=== PATIENT | female | born 1950 | race Caucasian/White ===

== ENCOUNTER → 2024-03-27 10:39 | Outpatient (REF) | payer MEDICARE, OTHER, SELFPAY ==
[2024-03-27 11:42] LABS: % Basophils 0.4 % (0-2); % Eosinophils 1.9 % (0-6); % Immature Granulocytes 0.3 % (0-0.5); % Lymphocytes 16.3 % (20.5-51.1); % Monocytes 6.8 % (1.7-9.3); % Neutrophils 74.3 % (42.2-75.2); Absolute Eosinophils 0.1 10^3/uL (0-0.7); Absolute Lymphocytes 1.1 10^3/uL (1.2-3.4); Absolute Monocytes 0.5 10^3/uL (0.1-0.6); Hematocrit 44.8 % (37.0-47.0); Hemoglobin 15.5 g/dL (12.0-16.0); Mean Corp Hgb Conc. 34.6 g/dL (33.0-37.0); Mean Corpuscular Hgb 32.8 pg (27.0-31.0); Mean Corpuscular Volume 94.7 fL (81.0-99.0); Nucleated Red Blood Cells % 0 %; Platelet Count 234 10^3/uL (130-400); Red Blood Cell Count 4.73 10^6/uL (4.20-5.40); Red Cell Dist. Width 12.9 % (11.5-14.5); White Blood Cell Count 6.7 10^3/uL (4.8-10.8)
[2024-03-27 14:00] LABS: Blood Urea Nitrogen 22 mg/dl (7-17); Calcium 10.2 mg/dl (8.4-10.2); Carbon Dioxide 30 mmol/L (22-30); Chloride 101 mmol/L (98-107); Glucose 103 mg/dl (70-99); Potassium 4.1 mmol/L (3.5-5.1); Sodium 142 mmol/L (135-145); eGFR > 60.00
== END ==
LOC: REG 10:39
PROVIDERS: ATTENDING PHYSICIAN Orthopaedic Surgery; FAMILY PHYSICIAN Family Medicine
DX: Z01.818 Encounter for other preprocedural examination (principal)
CPT/HCPCS: 36415; 80048; 85025

== ENCOUNTER 2024-04-24 19:13 | Observation (INO) | payer MEDICARE, OTHER, SELFPAY ==
[2024-04-24 15:26] VITALS: BP 94/67
[2024-04-24 17:18] LABS: % Basophils 0.2 % (0-2); % Immature Granulocytes 0.3 % (0-0.5); % Lymphocytes 2.6 % (20.5-51.1); % Monocytes 2.9 % (1.7-9.3); Absolute Lymphocytes 0.3 10^3/uL (1.2-3.4); Absolute Monocytes 0.4 10^3/uL (0.1-0.6); Absolute Neutrophils 11.8 10^3/uL (1.4-6.5); Hematocrit 33.2 % (37.0-47.0); Hemoglobin 11.6 g/dL (12.0-16.0); Mean Corp Hgb Conc. 34.9 g/dL (33.0-37.0); Mean Corpuscular Hgb 33.3 pg (27.0-31.0); Mean Corpuscular Volume 95.4 fL (81.0-99.0); Mean Platelet Volume 10.4 fL (7.4-10.4); Nucleated Red Blood Cells % 0 %; Platelet Count 180 10^3/uL (130-400); Red Blood Cell Count 3.48 10^6/uL (4.20-5.40); Red Cell Dist. Width 12.7 % (11.5-14.5); White Blood Cell Count 12.6 10^3/uL (4.8-10.8)
--- NOTE | 2024-04-24 17:21 | ED.GENMED ---
History of Present Illness
General
Chief Complaint: Fainting/Passed Out
Source: patient
Exam Limitations: none
Time Seen by Provider: 04/24/24 16:36
Nursing documentation reviewed up to this point in time: agreed with
History of Present Illness
History of Present Illness:
Patient to ED after syncopal event. SHe had RTHR this AM by Dr. Johnson. SHe was discharged home to [facility]. PT came to house to evaluate. SHe states she suddenly felt weak, flush. PT sat her in chair and she passed out. EMS called by PT
and she was sent to ED. She reports that she is feeling better however BP remains low.
Past History
Past History
ED Past Medical History: HTN, Hypercholesterolemia and Hypothyroidism
ED Past Surgical History: Orthopedic (RTHR)
Review of Systems
Review of Systems
Allergies reviewed?: Yes
All Other Systems: ROS reviewed and negative except as documented in HPI and ROS
Constitutional: Reports no symptoms
EENT: Reports no symptoms
Respiratory: Reports no symptoms
Cardiac: Reports syncope
ABD/GI: Reports no symptoms
Musculoskeletal: Reports other (RTHR, dressing dry and intat.)
Skin: Reports no symptoms
Neurological: Reports weakness
Psychiatric: Reports no symptoms
Phy Exam
General Physical Exam
General Presentation: mild distress
General age: appears stated age
General Skin: warm and dry
General Habitus: normal
Cardiovascular Exam
Cardiovascular Exam: regular rate/rhythm and no edema
Pulmonary Exam
Pulmonary Exam: lungs clear, no respiratory distress and chest non tender
Neurological Exam
Neurological Exam: alert, oriented x3, CN II-XII intact, no sensory deficits and speech normal
Musculoskeletal Exam
Musculoskeletal Exam: neuro vasc intact and other (RTHR today, dressing dry and intact.)
Skin Exam
Skin Exam: normal color, warm/dry and no rash
Psychiatric Exam
Psychiatric Exam: normal mood/affect
Course
Orders/Labs/Results
Orders:
Orders
04/24/24 Breakfast
Regular
At Your Request: Full Participation
Does patient need a safe tray?: No
04/24/24 15:25
ECG [Electrocardiogram (*1)] Urgent
Reason for Study: Syncope
EKG- Treatment ONCE
04/24/24 16:59
Complete Blood Count/With Diff Urgent
Comprehensive Metabolic Panel Urgent
NT-proBNP Urgent
Troponin I Urgent
04/24/24 18:55
Admit/Transfer Patient As Directed
Co-Sign Provider:
Level of Care: Observation services
Assign to:: Telemetry
Physician / Group: Savannah
Diagnosis: Syncope
Reason for Telemetry: Syncope
Date to Stop Telemetry: 04/26/24
Time to Stop Telemetry: 11:00
04/24/24 18:57
PRN Pain Medication Management As Directed
May give lesser potent ordered pain med per pt: Yes
preference::
Protocol:: Medication orders for pain may be administered in a
manner that supports deferring to patient preference
when the pt is:
- Requesting an ordered lesser potent pain medication.
Least to most potent pain medications are defined
as: acetaminophen < NSAID < tramadol < opioids
(morphine, oxycodone, hydromorphone).
- Requesting a lesser dose of the same medication IF
ORDERED.
- Requesting a less intrusive route of administration
if both routes are prescribed by the provider (PO <
IV).
04/24/24 18:58
Code Status As Directed
Resuscitation Status: Full Code
04/24/24 21:19
Acetaminophen [Tylenol] 1,000 mg PO Q6HPRN PRN
Celecoxib [Celebrex] 100 mg PO BID
Dexamethasone [Decadron] 4 mg PO BID
Gabapentin [Neurontin] 100 mg PO BID
Oxycodone [Roxicodone] 5 mg PO Q6HPRN PRN
Rosuvastatin Calcium [Crestor] 20 mg PO MoWeFr@0800
04/24/24 21:19
Activity As Directed
Activity Level: Out of Bed- Chair
Orthostatic Vital Signs As Directed
Orthostatic VS Frequency: BID
Pneumatic Compression Sleeves As Directed
Type: Knee high
Vital Signs As Directed
Frequency: Per unit guidelines
DX Deep Vein Thrombosis Video Routine
04/24/24 22:00
Ezetimibe [Zetia] 10 mg PO HS
04/25/24 06:00
Levothyroxine [Synthroid] 100 mcg PO DAILY @ 0600
04/25/24 07:30
Basic Metabolic Panel IN AM
Complete Blood Count/No Diff IN AM
04/25/24 08:00
Aspirin 325 mg PO DAILY
04/26/24 11:00
DC Protocol for Telemetry ONCE
Abnormal Lab Results
04/24/24
16:59
WBC 12.6 H 10^3/uL
(4.8-10.8)
RBC 3.48 L 10^6/uL
(4.20-5.40)
Hgb 11.6 L g/dL
(12.0-16.0)
Hct 33.2 L %
(37.0-47.0)
MCH 33.3 H pg
(27.0-31.0)
Absolute Neuts (auto) 11.8 H 10^3/uL
(1.4-6.5)
Absolute Lymphs (auto) 0.3 L 10^3/uL
(1.2-3.4)
Neutrophils % 94.0 H %
(42.2-75.2)
Lymphocytes % 2.6 L %
(20.5-51.1)
Glucose 151 H mg/dl
(70-99)
AST 38 H U/L
(14-36)
Total Protein 5.8 L g/dl
(6.3-8.2)
04/24/24 16:59
04/24/24 16:59
Vital Signs
Initial and Last Documented VS:
Initial Vital Signs
Temp Pulse Resp BP Pulse Ox
98.1 F 69 18 94/67 99
04/24/24 15:26 04/24/24 15:26 04/24/24 15:26 04/24/24 15:26 04/24/24 15:26
Last Documented Vital Signs
Temp Pulse Resp BP Pulse Ox
98.0 F 86 18 111/71 96
04/25/24 11:21 04/25/24 11:21 04/25/24 11:21 04/25/24 11:21 04/25/24 11:21
*Critical Care Note
Total Time (30-74mins, 75-104mins- exclusive of procedures): Not Applicable
Update Note
Update Note:
S/p RTHR this AM. Discharged to friends house. Syncopal event this afternoon, witnessed by PT. She reports feeling improved however BP remains low. IVF infusing. Friend is uncomfortable caring for her and she is uncomfortable/feels unsafe with
discharge at this point. Hx HTN, did not take her medications today. Will admit to hospitialist.
ED Attending Note
-
Portions of this chart may have been created with voice recognition software.� Occasional wrong word or��sound alike� substitutions may have occurred due to the inherent limitations of voice recognition software.
Discharge Plan
Departure
Patient Disposition: Admit
Date of Disposition: 04/24/24
Time of Disposition: 17:28
Presentation/result/management discussed w/ accepting MD/DO: Hospitalist
Condition: Fair
Covid-19: Not Applicable
Discharge Problem:
Hypotension, Syncope
Interventions
Interventions:
*General Assessment Last Done: 04/24/24 15:26
ED- Fall Risk Assessment Last Done: 04/24/24 17:56
*Nursing Disposition Last Done: 04/24/24 21:27
ED- Cardiac Assessment Last Done: 04/24/24 17:56
ED- Neurological Assessment Last Done: 04/24/24 17:56
Discharge Date and Time
Discharge Date/Time: 04/24/24 21:30
[2024-04-24 17:26] LABS: ALT (SGPT) 28 U/L (0-35); AST (SGOT) 38 U/L (14-36); Albumin 3.6 g/dl (3.5-5.0); Alkaline Phosphatase 45 U/L (38-126); Blood Urea Nitrogen 14 mg/dl (7-17); Calcium 8.6 mg/dl (8.4-10.2); Carbon Dioxide 22 mmol/L (22-30); Chloride 103 mmol/L (98-107); Glucose 151 mg/dl (70-99); Sodium 138 mmol/L (135-145); Total Bilirubin 0.5 mg/dl (0.2-1.3); Total Protein 5.8 g/dl (6.3-8.2); eGFR > 60.00
[2024-04-24 17:37] LABS: NT-proBNP 302 pg/ml; Troponin I < 0.012 ng/ml
[2024-04-24 17:55] VITALS: BP 99/47
--- NOTE | 2024-04-24 19:02 | HPS.HSE ---
Family Physician
-
Family Physician: NOT KNOW UNKNOWN - PT DOES
Chief Complaint
-
Syncope
History of Present Illness
Patient is a 73 y/o female past medical history of hypertension, hyperlipidemia and hypothyroidism who presents following a syncopal episode. Patient had a right hip replacement at the outpatient surgery center earlier today. She states she was
doing quite well and quickly got discharged from the recovery area. This afternoon she was walking in her friend's home where she is staying when she developed dizziness, developed a cold sweat and felt like she was going to pass out. PT was there
and sat in her a chair and then lowered her to the ground. Patient denies any chest pains, or palpitations associated with event. She did take her blood pressure medications prior to the surgery. She reports similar episode after her left total hip
replacement a few years ago.
Medical History
Past Medical History
Past Medical History: Reports None and Other
Additional Past Medical History:
Essential Hypertension
Hyperlipidemia
Hypothyroidism
Past Surgical History: Reports Other
Additional Past Surgical History:
Bilateral Total Hip Replacements
Colostomy with Reversal
Social History
Tobacco: Non-smoker
Alcohol: Occasional
Family History
Family History: Not pertinent
Allergies / Home Medications
Allergies reflects when Allergies were last updated in [facility].
Home Medications with original date entered in [facility]
Allergy/Medication List:
Allergies
Allergy/AdvReac Type Severity Reaction Status Date / Time
No Known Allergies Allergy Unverified 04/24/24 15:25
Home Medications
acetaminophen 500 mg tablet (Tylenol Extra Strength) 1,000 mg PO Q6HPRN PRN severe pain 04/24/24
aspirin 325 mg tablet 325 mg PO DAILY 04/24/24
celecoxib 100 mg capsule 100 mg PO BID 04/24/24
dexamethasone 4 mg tablet 4 mg PO BID 04/24/24
ezetimibe 10 mg tablet 10 mg PO HS 04/24/24
gabapentin 100 mg capsule 100 mg PO BID 04/24/24
hydrochlorothiazide 25 mg tablet 25 mg PO DAILY 04/24/24
levothyroxine 100 mcg tablet 100 mcg PO DAILY 04/24/24
losartan 50 mg tablet 50 mg PO DAILY 04/24/24
mupirocin 2 % topical ointment 1 applic topical BID 04/24/24
ondansetron HCl 4 mg tablet 4 mg PO Q6HPRN PRN nausea 04/24/24
oxycodone 5 mg tablet 5 mg PO Q6HPRN PRN severe pain 04/24/24
rosuvastatin 20 mg tablet 20 mg PO MOWEFR 04/24/24
Review of Systems
-
A 12 point ROS was completed and negative except as noted: Yes
Constitutional: Denies Fever or Chills
Respiratory: Denies Cough or Trouble Breathing
Cardiac: Reports Syncope; Denies Chest Pain or Palpitations
Physical Exam
Vital Signs
Vital Signs
Temp Pulse Resp BP Pulse Ox
98.1 F 84 18 99/47 99
04/24/24 15:26 04/24/24 17:55 04/24/24 17:55 04/24/24 17:55 04/24/24 17:55
Physical Exam
General: Comfortable and Conversant
HEENT: Anicteric and Moist mucous membranes
Respiratory: Clear and Non Labored Respirations
Cardiac: S1/S2 and Regular Rhythm
GI: Soft and Non Tender
Rectal: Deferred by Provider
Musculoskeletal: No Clubbing and No Cyanosis
Skin: Warm and Dry
Neuro: Awake, Alert, Oriented and Nonfocal/grossly intact
Psych: Calm
Laboratory Results
-
04/24/24 16:59
04/24/24 16:59
Laboratory Results
Total Bilirubin 0.5 mg/dl (0.2-1.3) 04/24/24 16:59
AST 38 U/L (14-36) H 04/24/24 16:59
ALT 28 U/L (0-35) 04/24/24 16:59
Alkaline Phosphatase 45 U/L (38-126) 04/24/24 16:59
Troponin I < 0.012 ng/ml 04/24/24 16:59
Data Reviewed
-
Lab Data: Labs Reviewed by me
Impression/Plan
-
Syncope secondary to Hypotension/Orthostasis following Anesthesia
-Continue IVFs
-Hold blood pressure meds
-Check orthostatic VS
-Monitor on Telemetry
Right Total Hip Replacement
-Continue aspirin for DVT proph
-Continue Tylenol, Celebrex and Gabapentin for pain
-Continue Oxycodone prn severe pain - Reviewed with patient to limit this medication as it can cause hypotension
Essential Hypertension
-Hold oral meds until BP improves
Hyperlipidemia
-Continue Crestor
Hypothyroidism
-Continue levothyroxine
DVT proph: SCDs
Code Status: Full Code
[2024-04-24 19:27] VITALS: BP 99/66
--- NOTE | 2024-04-24 19:32 | W.PN.UPDATE ---
Update Note
Progress Note Update
This is an addendum to the H&P written by Mignon Moon on 04/24/2024. Patient seen and examined independently with PA.
73-year-old female past medical history of hypertension, hypothyroidism, cervical disc disease, chronic pain, hyperlipidemia, presenting with syncopal episode after having right hip surgery today. Blood pressure in the 90s. Patient likely
hypotensive secondary to anesthesia and multiple hypertensive medications which she took today. Hold hypertensive medications. IV fluids.
Examination of the hip without amount of swelling expected after hip surgery.
[2024-04-24] MEDS: NSS 1000 IV (21:46)
[2024-04-24] MEDS: ZETIA 10 MG PO (21:47)
[2024-04-24] MEDS: CELEBREX 100 MG PO (21:47)
[2024-04-24] MEDS: NEURONTIN 100 MG PO (21:47)
[2024-04-24] MEDS: DECADRON 4 MG PO (21:49)
[2024-04-24 21:58] VITALS: BP 109/85; BP 132/78; BP 96/76; PULSE 107; PULSE 90; PULSE 98
[2024-04-24 22:50] VITALS: BP 132/78
[2024-04-25 03:40] VITALS: BP 106/69
[2024-04-25 03:48] VITALS: BMI 27.2
[2024-04-25] MEDS: SYNTHROID 100 MCG PO (05:05)
--- NOTE | 2024-04-25 07:16 | W.PN.UPDATE ---
Update Note
Progress Note Update
Patient seen and evaluated by orthopedic surgery this morning. Right total hip replacement yesterday, 04/24/[address]. Admitted to medical team due to syncopal event yesterday afternoon. Patient reports that she is feeling much better
this morning. Aquacel dressing clean, dry, and intact. She denies any lightheadedness, dizziness, chest pain or shortness of breath. She denies any significant right hip pain. She reports that she was able to get up early this morning and
ambulate to the bathroom without any concerns. She feels as though she is ready for discharge today. Event seems to be a simple vasovagal event and it looks like no further testing is needed. Recommend close follow-up in the office as an
outpatient. She will continue with Aspirin 325 mg once daily x 4 weeks for DVT prophylaxis and THP's. All questions were answered.
[2024-04-25 07:53] VITALS: BP 103/70
[2024-04-25 08:11] LABS: Hematocrit 31.6 % (37.0-47.0); Hemoglobin 10.6 g/dL (12.0-16.0); Mean Corp Hgb Conc. 33.5 g/dL (33.0-37.0); Mean Corpuscular Hgb 32.3 pg (27.0-31.0); Mean Corpuscular Volume 96.3 fL (81.0-99.0); Mean Platelet Volume 10.2 fL (7.4-10.4); Platelet Count 179 10^3/uL (130-400); Red Blood Cell Count 3.28 10^6/uL (4.20-5.40); Red Cell Dist. Width 12.6 % (11.5-14.5); White Blood Cell Count 7.9 10^3/uL (4.8-10.8)
[2024-04-25] MEDS: CELEBREX 100 MG PO (08:29)
[2024-04-25] MEDS: DECADRON 4 MG PO (08:29)
[2024-04-25] MEDS: NEURONTIN 100 MG PO (08:29)
[2024-04-25] MEDS: ASPIRIN 325 MG PO (08:29)
[2024-04-25 08:44] LABS: Blood Urea Nitrogen 12 mg/dl (7-17); Calcium 8.9 mg/dl (8.4-10.2); Carbon Dioxide 25 mmol/L (22-30); Chloride 106 mmol/L (98-107); Estimated Creatinine Clearance 83 ml/min; Glucose 112 mg/dl (70-99); Potassium 3.9 mmol/L (3.5-5.1); Sodium 142 mmol/L (135-145); eGFR > 60.00
[2024-04-25 09:15] VITALS: BP 112/67; BP 116/75; BP 117/72; PULSE 78; PULSE 85; PULSE 93
--- NOTE | 2024-04-25 09:17 | W.PN.HOSP.TC ---
Today's Communication/Plan
-
Stable for discharge today
Assessment / Plan
Assessment / Plan
HPI: 73-year-old female past medical history of hypertension, hypothyroidism, cervical disc disease, chronic pain, hyperlipidemia, presenting with syncopal episode after having right hip surgery today. Blood pressure in the 90s. Patient likely
hypotensive secondary to anesthesia and multiple hypertensive medications which she took today. Hold hypertensive medications. IV fluids.
Syncope secondary to Hypotension/Orthostasis following Anesthesia
-Orthostatic vital signs negative, ambulated without any dizziness today
-Blood pressure still soft 111/71
-Medically stable for discharge, would recommend holding her losartan and hydrochlorothiazide for 5 more days, can resume on 05/01/2024
-Follow-up with PCP in 1 week, orthopedic surgery in 2-3 weeks
Right Total Hip Replacement
-Continue aspirin for DVT proph
-Continue Tylenol, Celebrex and Gabapentin for pain
-Continue Oxycodone prn severe pain - Reviewed with patient to limit this medication as it can cause hypotension
Essential Hypertension
-Hold oral meds until BP improves
Hyperlipidemia
-Continue Crestor
Hypothyroidism
-Continue levothyroxine
DVT proph: Aspirin 325 mg daily as per orthopedic surgery
Code Status: Full Code
Physical Exam
General: No acute distress
HEENT: Normocephalic, Atraumatic, EOMI, MMM
Respiratory: Clear to Auscultation bilaterally
Cardiac: Normal S1/S2, Regular Rate and Rhythm
GI: Soft, Nontender, Nondistended, Normal Bowel Sounds
Extremities: No Clubbing, Cyanosis
Musculoskeletal: Right hip dressing noted
Neuro: Nonfocal/Grossly Intact
Anticipated Discharge: Today
Subjective/Interval History
-
Date of Service: April 25, 2024
Patient ambulated the hallways after lunch, no recurrence of lightheadedness. Her hip pain is tolerable. No fever, no chest pain, no shortness of breath. No nausea, no vomiting.
Objective Data
-
Labs:
Laboratory Results
04/25/24
07:30
WBC 7.9
Hgb 10.6 L
Hct 31.6 L
Plt Count 179
Sodium 142
Potassium 3.9
Chloride 106
Carbon Dioxide 25
BUN 12
Creatinine 0.6
Glucose 112 H
Calcium 8.9
Vital Signs:
Vital Signs
Temp Pulse Resp BP Pulse Ox
97.8 F 73 18 103/70 95
04/25/24 07:53 04/25/24 07:53 04/25/24 07:53 04/25/24 07:53 04/25/24 07:53
--- NOTE | 2024-04-25 10:08 | CM ---
Patient seen bedside.
IA completed.
Patient lives alone, but prior to this admission has been staying with a friend s/p hip replacement.
patients friends home with an in law suite, 1 story.
patient has can and RW.
patient had [facility] prior to admission and will resume services at d/c.
Patient independent prior to hip surgery and was able to drive.
Patient would prefer [facility] ([address])for new scripts as she is staying at a friends home.
Friend will transport home.
[facility] form completed.
Plan: home with [facility]- referral in [facility].
[facility]
[2024-04-25 11:21] VITALS: BP 111/71
--- NOTE | 2024-04-25 14:40 | W.DCSUMMARY ---
Discharge Summary
Discharge Data
Date of Admission: 04/24/24
Date of Discharge: 04/25/24
-
Pending Results: No
Hospital Course
Discharge diagnosis:
Syncope
Hypotension/orthostasis following anesthesia
Recent right total hip replacement on 04/24/2024
History of essential hypertension
Hyperlipidemia
Hypothyroidism
Consults: Orthopedic surgery
Hospital course:
73-year-old female past medical history of hypertension, hypothyroidism, cervical disc disease, chronic pain, and hyperlipidemia, presented with syncopal episode after having right hip surgery. Patient has a history of hypertension, and took her
usual hydrochlorothiazide and losartan the morning of the surgery. She was released home after her hip surgery, and had syncope. Her syncope is likely due to hypotension/orthostasis from anesthesia while taking her blood pressure medications.
Patient's blood pressure medications were held. She received IV fluids. Orthostatic vital signs were negative.
By the following day, she felt remarkably better. She ambulated without any lightheadedness or dizziness. Her blood pressure remains soft on the day of discharge. She has been counseled to hold her hydrochlorothiazide and losartan for 5 days, she
may resume on 05/01/2024. She needs to follow-up with her primary care doctor in 1 week, and orthopedic surgery in the office in 2-3 weeks.
Disposition: Home self-care
Discharge planning: Required 39 minutes
Discharge Plan
-
Patient Disposition: Home (Routine Discharge)
Discharge Diagnosis/Procedures: Syncope/passing out, recent right total hip replacement, hypotension
Condition: Good
Diet: Regular
Activity: As tolerated
Driving Restrictions: As prior to admission
Activity Restrictions/Additional Instructions:
Please follow-up with your primary care doctor in 1 week, and your orthopedic surgeon in 2-3 weeks.
Referrals:
UNKNOWN - PT DOES,NOT KNOW [Family Provider] -
Prescriptions:
Continued
aspirin 325 mg Tablet
325 mg PO DAILY
ondansetron HCl 4 mg Tablet
4 mg PO Q6HPRN PRN (Reason: nausea)
acetaminophen [Tylenol Extra Strength] 500 mg Tablet
1,000 mg PO Q6HPRN PRN (Reason: severe pain)
Rx Instructions:
take with 5mg oxycodone
levothyroxine 100 mcg Tablet
100 mcg PO DAILY
dexamethasone 4 mg Tablet
4 mg PO BID
mupirocin 2 % Ointment
1 applic TOPICAL BID
gabapentin 100 mg Capsule
100 mg PO BID
celecoxib 100 mg Capsule
100 mg PO BID
oxycodone 5 mg Tablet
5 mg PO Q6HPRN PRN (Reason: severe pain)
ezetimibe 10 mg Tablet
10 mg PO HS
rosuvastatin 20 mg Tablet
20 mg PO MOWEFR
Held
losartan 50 mg Tablet
50 mg PO DAILY
Hold Instructions: Resume on 04/29/24.
hydrochlorothiazide 25 mg Tablet
25 mg PO DAILY
Hold Instructions: Resume on 04/29/24.
Discharge Orders:
Discharge Patient (As Directed); Ordered 04/25/24
Ordered By: Jagdish Rinaldi
Discharge Date and Time
Discharge Date/Time: 04/25/24 15:21
Print Language: LAO
== END 2024-04-25 15:21 | disposition home health service (06) ==
LOC: 4 WEST ACU 19:13
PROVIDERS: Nurse Practitioner; Physician Assistant Medical; ADMITTING PHYSICIAN Hospitalist; ATTENDING PHYSICIAN Family Medicine; EMERGENCY PHYSICIAN Emergency Medicine
DX: T88.59XA Other complications of anesthesia, initial encounter (principal); I95.2 Hypotension due to drugs; T41.1X5A Adverse effect of intravenous anesthetics, initial encounter; Y92.009 Unspecified place in unspecified non-institutional (private) residence as the place of occurrence of the external cause; R55 Syncope and collapse; R53.1 Weakness; E78.00 Pure hypercholesterolemia, unspecified; I10 Essential (primary) hypertension; R94.31 Abnormal electrocardiogram [ECG] [EKG]; E03.9 Hypothyroidism, unspecified; G89.29 Other chronic pain; M50.90 Cervical disc disorder, unspecified, unspecified cervical region; Z96.643 Presence of artificial hip joint, bilateral; Z79.52 Long term (current) use of systemic steroids; Z79.890 Hormone replacement therapy; Z60.2 Problems related to living alone
CPT/HCPCS: 80048; 80053; 83880; 84484; 85025; 85027; 87070; 93005; 99285; G0378

== ENCOUNTER 2025-05-12 12:54 | Emergency (ER) | payer MEDICARE, OTHER, SELFPAY ==
[2025-05-12] VITALS (15 sets, daily range): BP systolic 90–133; BP diastolic 56–100; BMI 26.5
[2025-05-12] MEDS: DILAUDID 0.5 MG IV (13:14)
--- NOTE | 2025-05-12 13:50 | ED.GENMED ---
History of Present Illness
General
Chief Complaint: Musculo-Skeletal Complaint
Source: patient
Time Seen by Provider: 05/12/25 13:02
History of Present Illness
History of Present Illness:
74-year-old female presenting to the emergency department with EMS for evaluation after she was trying to move a loveseat sectional at home when she felt a sudden pop in her right hip and inability to ambulate/range of motion of the right hip.
Patient has previous bilateral total hip replacements. The right hip was done by Dr. Johnson at [facility] 1 year ago. Patient denies any focal weakness or numbness. No other injuries or concerns. Denies any history of similar.
Past History
Past History
ED Past Medical History: HTN, Hypercholesterolemia and Hypothyroidism
ED Past Surgical History: Bowel resection and Orthopedic (RTHR)
Social History
Tobacco: Non-smoker
Alcohol: Occasional
Drug: None
Living: alone
Review of Systems
Review of Systems
All Other Systems: ROS reviewed and negative except as documented in HPI and ROS
Phy Exam
Physical Exam
Physical Exam:
GENERAL: Alert , in no apparent distress
EYE: conjunctiva clear
Head: Normocephalic atraumatic
NECK: Supple,
ENT: mmm.
LUNGS: no acute respiratory distress
NEUROLOGICAL: Alert and oriented
SKIN: Warm and dry, skin intact.
MUSCULOSKELETAL: Right hip is shortened and internally rotated. Easily palpable pedal pulse. Cap refill less than 2 seconds. Patient is able to curl toes and plantarflex and dorsiflex the ankle.
PSYCH: Normal and appropriate interaction.
Scores
Heart Failure Risk
Heart Failure Risk Score: Not Applicable
Heart Score for Chest Pain Patients
STEMI patient?: Not applicable
Withdrawal Assessment of Alcohol
Withdrawal Assessment Completed?: Not applicable
Course
Orders/Labs/Results
Orders:
Orders
05/12/25 13:02
CR Hip - RT w/wo Pel 2-3 Vw* Urgent
Comment:
Reason For Exam: suspected dislocation
Include a pelvis x-ray?: Yes
05/12/25 13:03
HYDROmorphone [Dilaudid] 0.5 mg IV NOW STA
05/12/25 13:56
Propofol [Diprivan] 20 ml .ROUTE .STK-MED
05/12/25 14:31
CR Hip - RT without Pel 1 Vw Urgent
Comment:
Reason For Exam: reduction
Vital Signs
Initial and Last Documented VS:
Initial Vital Signs
Temp Pulse Resp BP Pulse Ox
97.7 F 66 20 120/87 99
05/12/25 12:55 05/12/25 12:55 05/12/25 12:55 05/12/25 12:55 05/12/25 12:55
Last Documented Vital Signs
Temp Pulse Resp BP Pulse Ox
98.1 F 73 25 124/75 96
05/12/25 15:10 05/12/25 15:45 05/12/25 15:45 05/12/25 15:30 05/12/25 15:45
Procedures
Moderate Sedation
ASA Risk Score: Class II
Chart and allergies reviewed: Yes
Consent for anesthesia obtained: Yes
Time out completed (validating right patient & procedure): Yes
Moderate Sedation Start Time(when first medication is given): 14:25
History of difficult intubation: No
Airway free of obstruction: Yes
Patient has a gag reflex: Yes
Patient is able to open mouth: Yes
Patient has no dentures: Yes
Patient has no loose teeth: Yes
Medication administered by Provider during Moderate Sedation: IV Propofol (mg)
Total dose administered: 50
Time drug administered: 14:25
Moderate Sedation Procedure End Time: 14:40
Joint/Fracture Reduction
Right Hip:
Indication for procedure:: Dislocation
Procedure completed by: Smith/Abida
Consent form signed: Yes
If no, reason: Emergency procedure
Joint reduced: with anesthesia sedation
Injury was: closed
Further treatement: needs re-check only
Post reduction exam: stable
Capillary Refill: normal
Normal distal neurovascular exam?: Yes
MDM/Problems Addressed
Differential Diagnosis Includes:
Dislocation
Fracture
Hardware injury
MDM/Problems Addressed:
74-year-old female presenting to the emergency department for evaluation after experiencing injury to her right hip while lifting a heavier piece of furniture. Suspect fracture versus dislocation. X-ray ordered. Disposition pending.
*Radiology
Radiology exam reviewed: preliminary read by ED provider (Dislocation of hip prosthesis)
*Pulse Oximetry
SaO2: 98
Oxygen Mode of Delivery: Room air
Patient hypoxic: no
*Critical Care Note
Total Time (30-74mins, 75-104mins- exclusive of procedures): Not Applicable
Patient Management
Escalation/DeEscalation of care consider admission/obs:
Postreduction x-ray obtained which shows successful reduction of the right hip prosthesis. Patient placed in knee immobilizer. She will follow-up with her orthopedist as an outpatient. Aware of return precautions to the ER.
ED Attending Note
-
Portions of this chart may have been created with voice recognition software.� Occasional wrong word or��sound alike� substitutions may have occurred due to the inherent limitations of voice recognition software.
Discharge Plan
Departure
Patient Disposition: Home (Routine Discharge)
Date of Disposition: 05/12/25
Time of Disposition: 14:53
Patient with high blood pressure during this ER visit?: No
Discharge Problem:
Dislocation of internal right hip prosthesis
Instructions: Hip Dislocation (DC)
Prescriptions:
No Action
losartan 50 mg Tablet
50 mg PO DAILY
aspirin 325 mg Tablet
325 mg PO DAILY
ondansetron HCl 4 mg Tablet
4 mg PO Q6HPRN PRN (Reason: nausea)
acetaminophen [Tylenol Extra Strength] 500 mg Tablet
1,000 mg PO Q6HPRN PRN (Reason: severe pain)
Rx Instructions:
take with 5mg oxycodone
levothyroxine 100 mcg Tablet
100 mcg PO DAILY
dexamethasone 4 mg Tablet
4 mg PO BID
hydrochlorothiazide 25 mg Tablet
25 mg PO DAILY
mupirocin 2 % Ointment
1 applic TOPICAL BID
gabapentin 100 mg Capsule
100 mg PO BID
celecoxib 100 mg Capsule
100 mg PO BID
oxycodone 5 mg Tablet
5 mg PO Q6HPRN PRN (Reason: severe pain)
ezetimibe 10 mg Tablet
10 mg PO HS
rosuvastatin 20 mg Tablet
20 mg PO MOWEFR
Referrals:
UNKNOWN - PT DOES,NOT KNOW [Family Provider]
Pablo Johnson MD [Active, Orthopedics]
Interventions
Interventions:
*Risk Screen - Suicide Last Done: 05/12/25 13:00
*General Assessment Last Done: 05/12/25 13:00
*Neglect/Abuse Screening Last Done: 05/12/25 13:00
*ED COVID-19 Vaccine History Last Done: 05/12/25 13:00
*ED Influenza Vaccine History Last Done: 05/12/25 13:00
[facility] Fall Risk Assessment Tool Last Done: 05/12/25 13:24
*Nursing Disposition Last Done: 05/12/25 16:06
ED-Musculoskeletal Assessment Last Done: 05/12/25 13:10
Discharge Date and Time
Discharge Date/Time: 05/12/25 16:08
Print Language: BURMESE
== END 2025-05-12 16:08 | disposition home or self-care (01) ==
LOC: EMR 12:54
PROVIDERS: EMERGENCY PHYSICIAN Emergency Medicine
DX: T84.020A Dislocation of internal right hip prosthesis, initial encounter (principal); Y79.2 Prosthetic and other implants, materials and accessory orthopedic devices associated with adverse incidents; Z96.642 Presence of left artificial hip joint; E78.00 Pure hypercholesterolemia, unspecified; I10 Essential (primary) hypertension; E03.9 Hypothyroidism, unspecified
CPT/HCPCS: 27265; 99152; 96374; 99285; 73501; 73502